=== PATIENT | male | born 1985 | race Caucasian/White ===

== ENCOUNTER 2023-01-16 14:01 | Emergency (ER) | payer MEDICAID ==
[~2023-01-16] VITALS: Ht 175.3 cm; Wt 76.0 kg
[2023-01-16 14:09] VITALS: O2SAT 100
[2023-01-16] MEDS ORDERED: MORPHINE SULFATE 4 MG/ML CPJ (NOT FOR IM USE) IV STA (14:16)
[2023-01-16 14:30] VITALS: TEMP 99.1
[2023-01-16] MEDS ORDERED: SODIUM CHLORIDE 0.9% 1,000 ML IV ONE (14:30)
[2023-01-16 15:10] VITALS: BP 115/78; PULSE 97; RESP 12
[2023-01-16 15:26] LABS: BASOPHILS % 0.9 % (0.0-2.0); HEMATOCRIT. 38.7 % (42.0-52.0); LYMPHOCYTES % 20.6 % (20.0-50.0); MEAN CORPUSCULAR HEMOGLOBIN 29.5 pg (28.0-32.0); MEAN CORPUSCULAR HGB CONC 33.5 g/dL (31.0-37.0); MEAN CORPUSCULAR VOLUME 88.1 fL (80.0-94.0); MEAN PLATELET VOLUME 7.5 fl (7.4-10.4); MONOCYTES % 7.4 % (2.0-8.0); NEUTROPHILS % 64.1 % (40.0-76.0); PLATELET 399 x1000/uL (130-400); RED BLOOD CELL COUNT 4.39 mill/uL (4.7-6.1); RED CELL DISTRIBUTION WIDTH 13.3 % (11.6-14.6); WHITE BLOOD COUNT 8.2 x1000/uL (4.5-11.0)
[2023-01-16 15:31] LABS: CHLORIDE 105 mEq/L (98-107); INDEX HEMOLYSI 1 (1-3); INDEX ICTERIC 1 (1-4); INDEX LIPEMIC 1 (1-3); POTASSIUM 3.5 mEq/L (3.5-5.1); SODIUM 138 mEq/L (136-145)
[2023-01-16 15:33] LABS: PROTHROMBIN TIME 10.4 sec (9.6-11.0)
[2023-01-16 15:40] LABS: ALANINE AMINOTRANSFERASE 23 IU/L (13-61); ALBUMIN 4.1 g/dL (3.4-5.0); ASPARTATE AMINOTRANSFERASE 13 IU/L (15-37); BILIRUBIN TOTAL 0.6 mg/dL (0.1-1.0); CALCIUM 9.3 mg/dL (8.5-10.1); CARBON DIOXIDE 28 mEq/L (21-32); CREATININE 0.7 mg/dL (0.6-1.3); ETHANOL BLOOD < 10 mg/dL (-10); GLUCOSE 135 mg/dL (70-105); PROTEIN TOTAL 7.8 g/dL (6.0-8.3); UREA NITROGEN BLOOD 12 mg/dL (7-21)
[2023-01-16 15:42] LABS: TROPONIN I HIGH SENSITIVITY < 4 ng/L (<78)
[2023-01-16 17:19] LABS: TROPONIN I HIGH SENSITIVITY < 4 ng/L (<78)
== END 2023-01-16 18:05 | disposition home or self-care (01) ==
LOC: ER 14:08
DX: R07.9 Chest pain, unspecified (principal); R00.0 Tachycardia, unspecified
CPT/HCPCS: 80053; 80320; 85025; 85610; 84484; 36415; 71045; 96361; 96374; 99284; J2270; J7030; Z7610 ×4; G0480